=== PATIENT | male | born 1980 | race African-American/Black ===

== ENCOUNTER 2017-04-13 20:13 | Emergency (ER) | payer BC ==
--- NOTE | ~2017-04-13 | CT52 ---
[facility] A Service of [facility] RADIOLOGY TEXT RESULTS PATIENT: GIOVANI FISCHER LOCATION: [facility] : 78 UNIT #: [id number] AGE: [address]: Vicki Echevarria APRN SEX: M ORDER DR: [id number] [id number] [facility]. [place], [place] [address] [id number] MR#: [id number] Acc #: [id number] NAME: GIOVANI FISCHER : 1980 SEX: M STUDY DATE/TIME: 04/13/2017 23:48 UNIT: [facility] ROOM: STUDY DESCRIPTION: CT Cervical Spine Wo Cont Attending Physician: Vicki Echevarria A.P.R.N. Ordering Physician: Vicki Echevarria A.P.R.N. Primary Care Physician: Primary Care Physician No MEDICAL IMAGING REPORT This report is preliminary unless electronic signature is present EXAM CT cervical spine INDICATIONS Neck pain for [address] of the cervical spine without contrast. Coronal and sagittal reconstructions were obtained. This CT exam was performed with one or more of the following radiation dose reduction techniques: automatic exposure control, adjustment of mA and/or kV according to patient size, and iterative reconstruction. COMPARISON CT cervical spine 02/27/2010. FINDINGS There is no acute fracture or subluxation. Vertebral body height and alignment is within normal limits. The craniocervical junction and atlantoaxial articulations are within normal limits. There is some mild prevertebral soft tissue swelling and inflammation. This is there is also a dystrophic calcification noted along the inferior aspect of the anterior ring of C1. This is in a location typical for calcific tendinitis of the lung is colon muscle. Please correlate for neck pain and dysphagia. Patient may also had fever or decreased range of motion. IMPRESSION 1. No acute traumatic findings. 2. Abnormal calcification along the inferior margin of the anterior ring [facility] A Service of [facility] RADIOLOGY TEXT RESULTS PATIENT: GIOVANI FISCHER LOCATION: [facility] : 78 UNIT #: [id number] AGE: [address]: Vicki Echevarria APRN SEX: M ORDER DR: of C1. There is associated inflammation within the prevertebral soft tissues from C2 through C4. This finding is typically associated with calcific tendinitis of the longus colli muscle. Please confirm with clinical symptoms. Dictated by... Ulisses Ng M.D. THIS IS AN ELECTRONICALLY VERIFIED REPORT Ulisses Ng M.D. at 04/14/2017 12:49 AM MALDONADO/gabo TD: 04/14/2017 00:20 JOB #: [id number] MEDICAL IMAGING REPORT Page 1 of 1 COPY
--- NOTE | ~2017-04-13 | CR58 ---
[facility] A Service of [facility] RADIOLOGY TEXT RESULTS PATIENT: GIOVANI FISCHER LOCATION: [facility] : 78 UNIT #: [id number] AGE: [address]: Vikci Echevarria APRN SEX: M ORDER DR: [id number] [address] [address] [id number] E MR#: [id number] Acc #: [id number] NAME: GIOVANI FISCHER : 1980 SEX: M STUDY DATE/TIME: 04/13/2017 21:54 UNIT: [facility] ROOM: STUDY DESCRIPTION: CR Cervical Spine 2 or 3 Views Attending Physician: Vicki Echevarria A.P.R.N. Ordering Physician: Vicki Echevarria A.P.R.N. MEDICAL IMAGING REPORT This report is preliminary unless electronic signature is present EXAM Cervical spine HISTORY Neck pain. TECHNIQUE 3 views of the cervical spine without comparison. FINDINGS There is no acute fracture or subluxation. Vertebral body height and alignment within normal limits. There is prominence of the prevertebral soft tissue. This may be the result of inadequate positioning, however if there are significant symptoms related to the neck, consider a cervical spine CT. IMPRESSION 1. No fracture. 2. Prominence of the prevertebral soft tissues may be artifact due to the patient's position, however if there are significant symptoms related to the neck, consider further evaluation with CT. Dictated by... Ulisses Ng M.D. THIS IS AN ELECTRONICALLY VERIFIED REPORT Ulisses Ng M.D. at 04/18/2017 7:03 AM MALDONADO/kindra TD: 04/13/2017 22:57 JOB #: [id number] [facility] A Service [facility] RADIOLOGY TEXT RESULTS PATIENT: GIOVANI FISCHER LOCATION: [facility] : 78 UNIT #: [id number] AGE: [address]: Vicki Echevarria APRN SEX: M ORDER DR: MEDICAL IMAGING REPORT Page 1 of 1 COPY
[~2017-04-13 20:13] MED LIST: FLEXERIL10 MG PO; VICODIN 5/1 TAB 5/50 DOB
== END 2017-04-14 00:36 | disposition home or self-care (01) ==
LOC: CFTX 20:13 → CED 20:13 → CFTX 21:33
DX: S16.1XXA Strain of muscle, fascia and tendon at neck level, initial encounter (principal); F17.210 Nicotine dependence, cigarettes, uncomplicated; X58.XXXA Exposure to other specified factors, initial encounter
CPT/HCPCS: 72040; 72125; 96372; 99284; J1885

== ENCOUNTER 2017-04-29 10:29 | Emergency (ER) | payer BC ==
--- NOTE | ~2017-04-29 | CR72 ---
[facility] A Service of [facility] RADIOLOGY TEXT RESULTS PATIENT: GIOVANI FISCHER LOCATION: [facility] : 78 UNIT #: [id number] AGE: [address]: Neftaly Veras MD SEX: M ORDER DR: [id number] [facility] [address] [place], [place] [address] [id number] E MR#: [id number] Acc #: [id number] NAME: GIOVANI FISCHER : 1980 SEX: M STUDY DATE/TIME: 04/29/2017 11:53 UNIT: [facility] ROOM: STUDY DESCRIPTION: CR Chest Single View Portable Attending Physician: eNftaly Veras M.D. Ordering Physician: Neftaly Veras M.D. Primary Care Physician: No Primary Care Physician MEDICAL IMAGING REPORT This report is preliminary unless electronic signature is present EXAM Portable chest, 04/29/17. COMPARISON STUDIES None. HISTORY Chest pain. FINDINGS AP portable view is obtained. The cardiovascular configuration is normal. Lungs are clear. CONCLUSION 1. Negative portable chest. Dictated by... Lex Wilkerson M.D. THIS IS AN ELECTRONICALLY VERIFIED REPORT Lex Wilkerson M.D. at 04/30/2017 9:16 AM [place] TD: 04/29/2017 16:59 JOB #: [id number] MEDICAL IMAGING REPORT Page 1 of 1 COPY
--- NOTE | ~2017-04-29 | EKG ---
PATIENT: GIOVANI FISCHER UNIT #: [id number] Ventricular Rate: 66 BPM Atrial Rate: 66 BPM P-R Interval: 186 ms QRS Duration: 100 ms Q-T Interval: 398 ms QTC Calculation(Bezet): 417 ms P [place]: 22 degrees Calculated R Charlotte: -12 degrees Calculated T [place]: -14 degrees Diagnosis Line: Normal sinus rhythm with sinus arrhythmia Diagnosis Line: Normal ECG Diagnosis Line: No previous ECGs available Diagnosis Line: Confirmed by EMELINA TREJO MD ([id number]) on 04/30/2017 Diagnosis Line: 4:40:04 PM INTERPRETING MD: NEIL HARGROVE
[2017-04-29 11:38] LABS: POC - CKMB 1.3 ng/mL (0.0-7.9); POC - TROPONIN <0.05 ng/mL (<=0.05)
[2017-04-29 11:43] LABS: BASOPHIL% 0.4 % (0-2.5); EOSINOPHIL# 0.1 X10e3 (0-0.7); EOSINOPHIL% 1.2 % (0.0-7.0); HEMATOCRIT 44.8 % (38.0-50.0); LYMPHOCYTE# 0.8 X10e3 (1.0-3.5); LYMPHOCYTE% 12.3 % (17.0-45.0); MEAN CELL VOLUME 85.3 FL (83-96); MEAN CORPUSCULAR HEMOGLOBIN 28.5 PG (28-34); MEAN CORPUSCULAR HGB CONC 33.4 g/dL (30-36); MEAN PLATELET VOLUME 7.6 FL (6.5-11.5); MONOCYTE# 0.6 X10e3 (0-1.0); MONOCYTE% 8.6 % (3.0-12.0); NEUTROPHIL# 5.2 X10e3 (1.5-7.1); NEUTROPHIL% 77.5 % (40-75); PLATELET COUNT 215 X10e3 (140-420); RED BLOOD COUNT 5.26 X10e (3.90-5.60); RED CELL DISTRIBUTION WIDTH 13.6 % (11.0-15.5); WHITE BLOOD COUNT 6.7 X10e3 (4.0-10.5)
[2017-04-29 11:47] LABS: DIFF IND NO
[2017-04-29 11:57] LABS: PARTIAL THROMBOPLASTIN TIME 30.2 SECONDS (23.5-31.3); PROTHROMBIN TIME (PATIENT) 10.1 SECONDS (9.6-11.5)
[2017-04-29 12:22] LABS: ALBUMIN SERUM 2.3 g/dL (3.5-5.0); ALKALINE PHOSPHATASE 33 U/L (32-92); ALT (SGPT) 18 U/L (10-40); AST (SGOT) 17 U/L (10-42); BILIRUBIN,TOTAL 0.3 mg/dL (0.2-2.0); BLOOD UREA NITROGEN 8 mg/dL (9-23); CARBON DIOXIDE 18 mmol/L (22-31); CHLORIDE 120 mmol/L (100-111); CREATININE SERUM 0.4 mg/dL (0.6-1.4); GLOM FILT RATE Estimated 175.9 mL/min (>60); GLUCOSE FASTING 92 mg/dL (70-110); PROTEIN TOTAL SERUM 4.9 g/dL (6.0-8.3); SODIUM 141 mmol/L (135-145)
[2017-04-29 12:26] LABS: BILIRUBIN, DIRECT <0.1 mg/dL (0.0-0.2); BILIRUBIN,INDIRECT 0.2 mg/dL (0.0-0.9); CALCIUM SERUM 5.6 mg/dL (8.4-10.2); POTASSIUM 2.5 mmol/L (3.5-5.1)
== END 2017-04-29 12:51 | disposition home or self-care (01) ==
LOC: CED 10:29
PROVIDERS: Emergency Medicine
DX: R07.9 Chest pain, unspecified (principal)
CPT/HCPCS: 36415; 71010; 80048; 80076; 82553; 84484; 85025; 85610; 85730; 93005; 96374; 99285; J2405